=== PATIENT | male | born 1960 | race Two or more races ===

== ENCOUNTER 2017-08-04 10:26 | Emergency (ER) | payer MEDICARE, MEDICAID ==
[~2017-08-04] VITALS: Ht 172.7 cm; Wt 118.0 kg
[2017-08-04] MEDS ORDERED: CARV12.545 PO (10:35)
[2017-08-04] MEDS ORDERED: FURO-151 PO (10:35)
[2017-08-04] MEDS ORDERED: IBUPROFEN 600MG TABLET PO ONE (11:30)
[2017-08-04 12:49] VITALS: BP 180/107
== END 2017-08-04 12:54 | disposition home or self-care (01) ==
LOC: ER 11:04
DX: S16.1XXA Strain of muscle, fascia and tendon at neck level, initial encounter (principal); S39.012A Strain of muscle, fascia and tendon of lower back, initial encounter; S39.82XA Other specified injuries of lower back, initial encounter; I11.9 Hypertensive heart disease without heart failure; J44.9 Chronic obstructive pulmonary disease, unspecified; I42.9 Cardiomyopathy, unspecified; Z95.810 Presence of automatic (implantable) cardiac defibrillator; Z88.0 Allergy status to penicillin; V43.62XA Car passenger injured in collision with other type car in traffic accident, initial encounter; Y93.89 Activity, other specified; Y92.488 Other paved roadways as the place of occurrence of the external cause
CPT/HCPCS: 72070; 72100; 72220; 73030; 99284